=== PATIENT | female | born 2000 | race Caucasian/White ===

== ENCOUNTER 2022-12-31 09:01 | Outpatient (CLI) | payer OTHER, SELFPAY ==
--- NOTE | 2022-12-31 09:15 | CRLHL7_ITS ---
For Patients: As a result of the Century Cures Act, medical imaging exams and procedure reports are released immediately into your electronic medical record. You may view this report before your referring provider. If you have questions, please contact your health care provider. Indication: Follow-up prominent lymph nodes Technique: Grayscale and color Doppler ultrasound of the neck performed bilaterally. Comparison: 11/12/2022 Findings: Right submandibular lymph node is present measuring 1.2 x 0.6 x 0.9 cm. Normal internal vascularity. Central fatty hilum noted. Additional right submandibular lymph node is present measuring 1.7 x 0.6 x 1.2 cm. Left submandibular lymph node measures 2.0 x 0.7 x 1.6 cm. Additional left submandibular lymph node noted measuring 1.2 x 0.7 x 1.1 cm. Impression: Mildly prominent submandibular lymph nodes are similar bilaterally. These appear to be mildly reactive. Dictated by Luan Quintanilla MD @ 12/31/2022 11:06:56 AM (Electronically Signed)
== END 2022-12-31 09:02 | disposition home or self-care (01) ==
LOC: US 09:02
PROVIDERS: PCP Physician Assistant Medical; Visit Provider Otolaryngology
DX: R59.9 Enlarged lymph nodes, unspecified (principal)
CPT/HCPCS: 76536